=== PATIENT | male | born 1965 | race Caucasian/White ===

== ENCOUNTER 2016-06-07 10:20 | Outpatient (CLI) | payer BC ==
[2016-06-07 12:01] LABS: #Eosinphils 0.2 thou/uL (0.0-0.7); #Lymphocytes 1.1 thou/uL (1.20-3.40); #Monocytes 0.4 thou/uL (0.11-0.59); #Neutrophils 2.7 thou/uL (1.40-6.50); %Basophils 0.9 % (0.0-1.0); %Eosinophils 3.8 % (0.0-10.0); %Monocytes 8.4 % (0.0-10.0); Hematocrit 45.7 % (42.0-52.0); Mean Platelet Volume 6.4 fL (7.4-10.4); Red Blood Cell (RBC) Count 5.05 mill/uL (4.70-6.10); White Blood Cell (WBC) Count 4.4 thou/uL (4.8-10.8)
[2016-06-07 12:20] LABS: ALT (SGPT) 33 U/L (0-55); AST (SGOT) 19 U/L (5-34); Alkaline Phosphatase 71 U/L (40-150); Anion Gap 14 mmol/L (10-20); BUN (Urea Nitrogen) 14 mg/dL (8.9-20.6); Bilirubin, Total 0.9 mg/dL (0.2-1.2); Calc. Creatinine Clearance 0 mL/min (70-130); Calcium 9.1 mg/dL (7.8-10.44); Carbon Dioxide 25 mmol/L (22-29); Chloride 105 mmol/L (98-107); Estimated GFR-MDRD 82; Globulin 2.4 g/dL (2.4-3.5); LDL Cholesterol, Calculated 100 mg/dL; Protein, Total 6.9 g/dL (6.0-8.3)
[2016-06-07 18:04] LABS: Free T3 1.81 pg/mL (1.71-3.71)
== END 2016-06-07 10:21 | disposition home or self-care (01) ==
LOC: HPCALD 10:20
PROVIDERS: ATTEND Family Medicine
DX: E78.1 Pure hyperglyceridemia (principal); E03.9 Hypothyroidism, unspecified; I10 Essential (primary) hypertension
CPT/HCPCS: 36415; 80053; 80061; 84439; 84443; 84481; 85025

== ENCOUNTER 2016-10-25 16:22 | Outpatient (CLI) | payer BC ==
[2016-10-25 17:25] LABS: Free T4 (Free Thyroxine) 1.17 ng/dL (0.70-1.48); Thyroid Stimulating Hormone 0.2071 uIU/mL (0.35-4.94)
== END 2016-10-25 16:23 | disposition home or self-care (01) ==
LOC: HPCALD 16:22
PROVIDERS: ATTEND Family Medicine
DX: E03.9 Hypothyroidism, unspecified (principal)
CPT/HCPCS: 36415; 84439; 84443

== ENCOUNTER 2016-12-13 09:00 | Outpatient (CLI) | payer BC ==
[2016-12-13 10:06] LABS: ALT (SGPT) 27 U/L (8-55); AST (SGOT) 17 U/L (5-34); Albumin 4.4 g/dL (3.5-5.0); Alkaline Phosphatase 67 U/L (40-150); Anion Gap 14 mmol/L (10-20); BUN (Urea Nitrogen) 20 mg/dL (8.9-20.6); Bilirubin, Total 1.1 mg/dL (0.2-1.2); Calc. Creatinine Clearance 0 mL/min (70-130); Carbon Dioxide 25 mmol/L (22-29); Cardiac Risk 4.8 (Less than 4.5); Chloride 102 mmol/L (98-107); Cholesterol 148 mg/dl (< 200 Desired); Estimated GFR-MDRD 78; Globulin 2.3 g/dL (2.4-3.5); Glucose 104 mg/dL (70-105); HDL Cholesterol 31 mg/dL (>60 Neg Risk); LDL Cholesterol, Calculated 82 mg/dL; Potassium 4.3 mmol/L (3.5-5.1); Protein, Total 6.7 g/dL (6.0-8.3); Sodium 137 mmol/L (136-145); Triglycerides 175 mg/dL (Less than 150)
[2016-12-13 10:08] LABS: #Basophils 0.1 thou/uL (0.0-0.2); #Eosinphils 0.3 thou/uL (0.0-0.7); #Lymphocytes 1.4 thou/uL (1.20-3.40); #Monocytes 0.7 thou/uL (0.11-0.59); #Neutrophils 3.6 thou/uL (1.40-6.50); %Basophils 1.1 % (0.0-1.0); %Eosinophils 4.6 % (0.0-10.0); %Lymphocytes 22.8 % (21.0-51.0); %Monocytes 11.3 % (0.0-10.0); %Neutrophils 60.2 % (42.0-75.0); Hemoglobin 15.6 g/dL (14.0-18.0); Mean Corpuscular HGB CONC 34.8 g/dL (32.0-36.0); Mean Corpuscular Hemoglobin 31.6 pg (27.0-31.0); Mean Corpuscular Volume 90.6 fl (80.0-94.0); Mean Platelet Volume 6.7 fL (7.4-10.4); Platelet Count 240 thou/uL (130-400); Red Blood Cell (RBC) Count 4.95 mill/uL (4.70-6.10)
[2016-12-13 10:20] LABS: Free T4 (Free Thyroxine) 1.13 ng/dL (0.70-1.48); PSA-Asymptomatic (SCREENING) 0.21 ng/mL (0-4.0); Thyroid Stimulating Hormone 0.5827 uIU/mL (0.35-4.94)
[2016-12-13 10:40] LABS: Hemoglobin A1c 5.4 % (4.0-6.0)
== END 2016-12-13 09:01 | disposition home or self-care (01) ==
LOC: HPCALD 09:00
PROVIDERS: ATTEND Family Medicine
DX: Z12.5 Encounter for screening for malignant neoplasm of prostate (principal); E78.1 Pure hyperglyceridemia; E03.9 Hypothyroidism, unspecified; I10 Essential (primary) hypertension; R73.9 Hyperglycemia, unspecified
CPT/HCPCS: 36415; 80053; 80061; 83036; 84439; 84443; 85025; G0103

== ENCOUNTER 2020-07-01 12:02 | Outpatient (CLI) | payer BC | END 2020-07-01 12:03 | disposition home or self-care (01) | LOC: BURRAD 12:02 | PROVIDERS: ATTEND Family Medicine | DX: M25.562 Pain in left knee (principal) ==